=== PATIENT | female | born 1935 | race Asian ===

== ENCOUNTER 2017-09-17 12:51 | Emergency (ER) | END 2017-09-17 16:02 | disposition home or self-care (01) ==

== ENCOUNTER 2018-01-20 15:47 | Observation (INO) | END 2018-01-21 16:13 | disposition home or self-care (01) ==

== ENCOUNTER 2018-04-01 15:08 | Emergency (ER) | END 2018-04-01 17:44 | disposition home or self-care (01) ==

== ENCOUNTER 2018-06-03 22:34 | Emergency (ER) | END 2018-06-04 05:11 | disposition home or self-care (01) ==

== ENCOUNTER → 2019-01-10 | Emergency (ER) | payer MEDICARE, MEDICAID ==
[~2019-01-10] VITALS: Ht 152.4 cm; Wt 45.0 kg
[~2019-01-10] MED LIST: AMLO-145 PO; ASPI-817 PO; CHOL100062 PO; CRES20 PO; DICL100G37 TOP; FLUO60OI TOP; FLUT16SP17 NASAL; IBAN150T7 PO; KEN25O TOP; LACHYD12 TOP; LEVO5TAB28 PO; LORA-441 PO; LOSA100T15 PO; MECL12.574 PO; METO-335 PO; MULT-902 PO; NYST15CR28 TOP; OMEG-135 PO; OMEP40CA6 PO; ONDA4TAB14 PO
[2019-01-10 09:47] VITALS: Ht 152.4 cm; Wt 45.0 kg
--- NOTE | 2019-01-10 12:56 | ERD ---
ER Documentation Chief Complaint Chief Complaint R76, dizziness veritgo wants comfirmation to take meds, HPI 83-year-old female, presents to the emergency department, brought in by rico payan, complaining of 1 week with persistent dizziness. The patient has a well- known history of vertigo with extensive work-up including MRI and neurology evaluation. The patient called the paramedics because she leaves in a second floor by herself and needed help getting out of the her house. Otherwise, she denies chest pain, no shortness of breath, no palpitations, no distal weakness, numbness or tingling. She has an appointment with her primary doctor in 2 days for medication reconciliation. ROS All systems reviewed and are negative except as per history of present illness. Medications Home Meds Active Scripts Meclizine Hcl* (Antivert*) 12.5 Mg Tab, 12.5 MG PO Q6H PRN for DIZZINESS, #20 TAB Prov:MIKKI GONZALES MD 01/10/19 Lorazepam* (Ativan*) 0.5 Mg Tablet, 0.5 MG PO QHS PRN for VERTIGO, #10 TAB Prov:MIKKI GONZALES MD 01/10/19 Ondansetron (Ondansetron Odt) 4 Mg Tab.rapdis, 4 MG PO Q6H PRN for NAUSEA AND/OR VOMITING, #10 TAB Prov:PATRICIA LONG MD 04/01/18 Reported Medications Triamcinolone Acetonide* (Kenalog*) 0.025%-15GM Oint, 1 APPLIC TOP NEEDED, #1 EA 09/17/17 Ammonium Lactate* (Lac-Hydrin* 12% (225gm)) 1 Applic Lotion, 1 APPLIC TOP NEEDED, BOTTLE 09/17/17 Diclofenac Sodium* (Voltaren* Gel) 1% -100 Gm Gel, 2 GM TOP QID, #1 TUB 09/17/17 [place]-3 Fatty Acids/Fish Oil (Fish Oil 1,000 mg Capsule) 1 Each Capsule, 1 EACH PO TID, CAP 09/17/17 Fluocinonide* (Fluocinonide* Oint) 0.05%-60 Gm Oint..gm., 1 APPLIC TOP BID, EA 09/17/17 Fluticasone Propionate* (Fluticasone Propionate* Nasal) 50 Mcg/[place] - 16 Gm [place].susp, 1 SPRAY NASAL BID, #1 BOTTLE TO EACH NOSTRIL 09/17/17 Ibandronate Sodium* (Boniva*) 150 Mg Tablet, 150 MG PO Q30D, TAB 09/17/17 Multivitamin/Iron/Folic Acid (Centrum Adults Tablet) 1 Each Tablet, 1 EACH PO Q7D, TAB 09/17/17 Cholecalciferol* (Vitamin D3*) 1,000 Unit Tablet, 1000 UNIT PO DAILY, TAB 09/17/17 Aspirin* (Aspirin* EC) 81 Mg Tablet.dr, 81 MG PO DAILY, TAB 09/17/17 Levocetirizine Dihydrochloride (Xyzal) 5 Mg Tablet, 5 MG PO QPM, TAB 09/17/17 Omeprazole* (Omeprazole*) 40 Mg Capsule.dr, 40 MG PO BID, #30 CAP 09/17/17 Rosuvastatin Calcium* (Crestor*) 20 Mg Tablet, 20 MG PO QHS, #30 TAB 02/24/16 Nystatin* (Nystatin*) 15 Gm Cr, 1 APPLIC TOP BID, #1 TUB 01/02/16 Amlodipine Besylate* (Amlodipine Besylate*) 5 Mg Tablet, 5 MG PO DAILY, #30 TAB 01/02/16 Losartan Potassium* (Losartan Potassium*) 100 Mg Tablet, 100 MG PO DAILY, TAB 11/29/14 Metoprolol Succinate* (Toprol XL*) 25 Mg Tab.sr.24h, 25 MG PO DAILY, TAB 11/14/14 Allergies Allergies: Coded Allergies: No Known Allergy (Unverified , 01/20/18) PMhx/Soc History of Surgery: Yes (left mastectomy,radial nerve repair) Anesthesia Reaction: No Hx Neurological Disorder: No Hx Respiratory Disorders: No Hx Cardiac Disorders: Yes (htn) Hx Psychiatric Problems: No Hx Miscellaneous Medical Probl: Yes (vertigo, breast ca ) Hx Alcohol Use: No Hx Substance Use: No Hx Tobacco Use: No Smoking Status: Never smoker FmHx Family History: No diabetes, No coronary disease Physical Exam Vitals Vital Signs Date Temp Pulse Resp B/P (MAP) Pulse Ox O2 O2 Flow FiO2 Time Delivery Rate 01/10/19 98.1 82 18 130/60 100 09:47 (83) Physical Exam Patient is in no acute distress, vital signs stable. Alert and fully oriented. HEENT: PERRLA, EOMI, Sclera and conjunctiva appear normal, Canals clear, tympanic membranes WNL. THROAT: Normal oropharynx. NECK: Supple, No lymphadenopathy. Full ROM without pain or tenderness. HEART: RRR, no rubs, murmurs, clicks or gallops. LUNGS: Clear to auscultation. ABDOMEN: Soft, non-tender without masses or hepatosplenomegaly. EXTREMITIES: No edema bilaterally. BACK: Full ROM, no deformity, normal back exam NEURO: Cranial nerves grossly intact, no motor or sensory deficit. Mild horizontal nystagmus while the patient was looking straight ahead with mildly abnormal head impulse test. Results 24 hrs EKG read by me: Rate/Rhythm: Regular rate and rhythm at a rate of 70 Intervals: Normal No acute ST changes. No T wave inversion Impression: No evidence of acute ischemia or arrhythmia Procedures/MDM Vital signs stable, neurovascular exam revealed horizontal nystagmus while the patient was looking straight ahead with mildly abnormal head impulse test. Differential diagnosis include but not limited to dehydration, cardiac arrhythmia, , Mnire's disease, vestibular neuronitis, migraine, vertigo, side effects of the medications, hypoglycemia. Less likely but is still a possibility, intracranial hemorrhage, ischemic stroke, SLEE[employer] CUTTER neoplasm. Pertinent Data: 12 Lead ECG: Sinus rhythm, no ST changes, normal T wave, normal intervals Physical examination and clinical presentation consistent most likely with positional vertigo During the ED course the patient remained stable, no new complaints. Results and clinical impression discussed with patient who agrees with management. The patient is stable to be treated outpatient and will be discharged home with instructions to follow up with the primary care provider in the next 48h. If symptoms persist, worsen or new symptoms develop, then patient should return to the ED immediately. Instructions explained and given directly by me to the patient with acknowledgment and demonstrated understanding. Disclaimer: Inadvertent spelling and grammatical errors are likely due to EHR/dictation software use and do not reflect on the overall quality of patient care. Also, please note that the electronic time recorded on this note does not necessarily reflect the actual time of the patient encounter. Departure Diagnosis: Primary Impression: Vertigo Condition: Stable Patient Instructions: Vertigo, Unspecified Additional Instructions: Thank you very much for allowing us to participate in your care. Your health and safety is our top priority at [facility]. The evaluation in the emergency department has been done to rule out an acute emergency, therefore, chronic conditions like malignancy or other diseases have not been evaluated; therefore, you need to follow up with a primary care provider in the next 48h. If symptoms persist, worsen or new symptoms develop, then patient should return to the ED immediately. Call your primary care doctor TOMORROW for an appointment during the next 2-4 days and bring all the information provided. Have prescriptions filled and follow precisely the directions on the label. If the symptoms get worse and your provider is unavailable, return to the Emergency Department immediately. MIKKI GONZALES MD January 10, 2019 12:52
[2019-01-10 13:24] VITALS: BP 125/62; PULSE 88; RESP 18
== END | disposition home or self-care (01) ==
LOC: FTE 09:30
DX: R42 Dizziness and giddiness (principal); I10 Essential (primary) hypertension; Z79.82 Long term (current) use of aspirin; Z85.3 Personal history of malignant neoplasm of breast
CPT/HCPCS: 93005

== ENCOUNTER 2019-04-16 21:02 | Emergency (ER) | payer MEDICARE, OTHER ==
[~2019-04-16] VITALS: Ht 152.4 cm; Wt 47.7 kg
[2019-04-16 21:10] VITALS: Ht 152.4 cm; Wt 47.7 kg
[2019-04-17] MEDS ORDERED: SOD CHLORIDE 0.9% 500 ML IV STA (00:34)
[2019-04-17] MEDS ORDERED: MECLIZINE 12.5 MG TAB PO ONE (01:00)
[2019-04-17 03:30] VITALS: BP 144/70; PULSE 64; RESP 16
--- NOTE | 2019-04-17 03:53 | ERD ---
ER Documentation Chief Complaint Chief Complaint RA89; DIZZINESS ON/OFF X2DAYS, STATES FROM HEAT; HX OF VERTIGO HPI This is a very pleasant 83-year female brought in by rescue with complaints of vertigo acting up on and off for few days. She forgot to take her meclizine for known vestibular vertigo. She denies any focal neurologic complaints. Denies fevers chills nausea vomiting. Denies any other current issues. ROS All systems reviewed and are negative except as per history of present illness. Medications Home Meds Active Scripts Meclizine Hcl* (Antivert*) 12.5 Mg Tab, 12.5 MG PO Q6H PRN for DIZZINESS, #20 TAB Prov:MIKKI GONZALES MD 01/10/19 Lorazepam* (Ativan*) 0.5 Mg Tablet, 0.5 MG PO QHS PRN for VERTIGO, #10 TAB Prov:MIKKI GONZALES MD 01/10/19 Ondansetron (Ondansetron Odt) 4 Mg Tab.rapdis, 4 MG PO Q6H PRN for NAUSEA AND/OR VOMITING, #10 TAB Prov:PATRICIA LONG MD 04/01/18 Reported Medications Triamcinolone Acetonide* (Kenalog*) 0.025%-15GM Oint, 1 APPLIC TOP NEEDED, #1 EA 09/17/17 Ammonium Lactate* (Lac-Hydrin* 12% (225gm)) 1 Applic Lotion, 1 APPLIC TOP NEEDED, BOTTLE 09/17/17 Diclofenac Sodium* (Voltaren* Gel) 1% -100 Gm Gel, 2 GM TOP QID, #1 TUB 09/17/17 [place]-3 Fatty Acids/Fish Oil (Fish Oil 1,000 mg Capsule) 1 Each Capsule, 1 EACH PO TID, CAP 09/17/17 Fluocinonide* (Fluocinonide* Oint) 0.05%-60 Gm Oint..gm., 1 APPLIC TOP BID, EA 09/17/17 Fluticasone Propionate* (Fluticasone Propionate* Nasal) 50 Mcg/[place] - 16 Gm [place].susp, 1 SPRAY NASAL BID, #1 BOTTLE TO EACH NOSTRIL 09/17/17 Ibandronate Sodium* (Boniva*) 150 Mg Tablet, 150 MG PO Q30D, TAB 09/17/17 Multivitamin/Iron/Folic Acid (Centrum Adults Tablet) 1 Each Tablet, 1 EACH PO Q7D, TAB 09/17/17 Cholecalciferol* (Vitamin D3*) 1,000 Unit Tablet, 1000 UNIT PO DAILY, TAB 09/17/17 Aspirin* (Aspirin* EC) 81 Mg Tablet.dr, 81 MG PO DAILY, TAB 09/17/17 Levocetirizine Dihydrochloride (Xyzal) 5 Mg Tablet, 5 MG PO QPM, TAB 09/17/17 Omeprazole* (Omeprazole*) 40 Mg Capsule.dr, 40 MG PO BID, #30 CAP 09/17/17 Rosuvastatin Calcium* (Crestor*) 20 Mg Tablet, 20 MG PO QHS, #30 TAB 02/24/16 Nystatin* (Nystatin*) 15 Gm Cr, 1 APPLIC TOP BID, #1 TUB 01/02/16 Amlodipine Besylate* (Amlodipine Besylate*) 5 Mg Tablet, 5 MG PO DAILY, #30 TAB 01/02/16 Losartan Potassium* (Losartan Potassium*) 100 Mg Tablet, 100 MG PO DAILY, TAB 11/29/14 Metoprolol Succinate* (Toprol XL*) 25 Mg Tab.sr.24h, 25 MG PO DAILY, TAB 11/14/14 Allergies Allergies: Coded Allergies: No Known Allergy (Unverified , 01/20/18) PMhx/Soc History of Surgery: Yes (left mastectomy,radial nerve repair) Anesthesia Reaction: No Hx Neurological Disorder: No Hx Respiratory Disorders: No Hx Cardiac Disorders: Yes (htn) Hx Psychiatric Problems: No Hx Miscellaneous Medical Probl: Yes (vertigo, breast ca ) Hx Alcohol Use: No Hx Substance Use: No Hx Tobacco Use: No Smoking Status: Never smoker Physical Exam Vitals Vital Signs Date Temp Pulse Resp B/P (MAP) Pulse Ox O2 O2 Flow FiO2 Time Delivery Rate 04/16/19 98.3 66 18 149/71 99 21:10 (97) Physical Exam Const: No acute distress Head: Atraumatic Eyes: Normal Conjunctiva ENT: Normal External Ears, Nose and Mouth. Neck: Full range of motion. No meningismus. Resp: Clear to auscultation bilaterally Cardio: Regular rate and rhythm, no murmurs Abd: Soft, non tender, non distended. Normal bowel sounds Skin: No petechiae or rashes Back: No midline or flank tenderness Ext: No cyanosis, or edema Neur: Awake and alert Psych: Normal Mood and Affect Result Diagram: 04/17/19 0130 04/17/19 0130 Results 24 hrs Laboratory Tests Test 04/17/19 01:30 White Blood Count 8.8 10^3/ul Red Blood Count 4.03 10^6/ul Hemoglobin 12.3 g/dl Hematocrit 36.1 % Mean Corpuscular Volume 89.6 fl Mean Corpuscular Hemoglobin 30.5 pg Mean Corpuscular Hemoglobin Concent 34.1 g/dl Red Cell Distribution Width 12.4 % Platelet Count 166 10^3/UL Mean Platelet Volume 9.3 fl Immature Granulocytes % 0.600 % Neutrophils % 79.7 % Lymphocytes % 12.6 % Monocytes % 5.8 % Eosinophils % 0.5 % Basophils % 0.8 % Nucleated Red Blood Cells % 0.0 /100WBC Immature Granulocytes # 0.050 10^3/ul Neutrophils # 7.0 10^3/ul Lymphocytes # 1.1 10^3/ul Monocytes # 0.5 10^3/ul Eosinophils # 0.0 10^3/ul Basophils # 0.1 10^3/ul Nucleated Red Blood Cells # 0.0 10^3/ul Prothrombin Time 11.7 Sec Prothrombin Time Ratio 0.9 INR International Normalized Ratio 0.85 Activated Partial Thromboplast Time 31.2 Sec Sodium Level 134 mmol/L Potassium Level 3.4 mmol/L Chloride Level 96 mmol/L Carbon Dioxide Level 27 mmol/L Anion Gap 11 Blood Urea Nitrogen 11 mg/dl Creatinine 0.56 mg/dl Est Glomerular Filtrat Rate mL/min mL/min Glucose Level 147 mg/dl Calcium Level 9.6 mg/dl Troponin I < 0.012 ng/ml Current Medications Medications Dose Sig/Michelle Start Time Status Last (Trade) Ordered Route PRN Stop Time Admin Dose Reason Admin Sodium 500 ml @ Q1H STAT 04/17/19 DC 04/17/19 Chloride 500 mls/hr IV 00:34 04/17/19 01:23 01:33 Meclizine 25 mg ONCE ONCE 04/17/19 DC 04/17/19 HCl PO 01:00 04/17/19 01:22 (Antivert) 01:01 Procedures/[facility] EKG: Rate/Rhythm: [Normal Sinus Rhythm] QRS, ST, T-waves: [No changes consistent w/ acute ischemia] Impression: [No evidence of ischemia or arrhythmia] Chest X-ray 1V Interpreted by me: Soft Tissue: No acute abnormalities Bones: No acute abnormalities Mediastinum/Cardiac Silhouette/Lungs: [No acute abnormalities] Medical decision making: Patient's neurologic symptoms have stabilized while they have been evaluated in the department and are appropriate for outpatient work up. No e/o meningitis, intracranial bleed, seizure, stroke. Departure Diagnosis: Primary Impression: Dizziness Condition: Stable Patient Instructions: Inner Ear Problems: Causes of Dizziness (Vertigo), Dizziness (Vertigo) and Balance Problems: Ensuring Your Safety KIMBERLY VALDEZ Apr 17, 2019 03:53
== END 2019-04-17 07:43 | disposition home or self-care (01) ==
LOC: E/R 21:02
DX: R42 Dizziness and giddiness (principal); R40.2142 Coma scale, eyes open, spontaneous, at arrival to emergency department; R40.2362 Coma scale, best motor response, obeys commands, at arrival to emergency department; R40.2252 Coma scale, best verbal response, oriented, at arrival to emergency department; I10 Essential (primary) hypertension; R07.9 Chest pain, unspecified; Z85.3 Personal history of malignant neoplasm of breast; Z79.82 Long term (current) use of aspirin
CPT/HCPCS: 70450; 71045; 80048; 84484; 85025; 85610; 85730; 93005; 99285; J7040